=== PATIENT | female | born 1970 | race African-American/Black ===

== ENCOUNTER 2022-03-10 03:44 | Emergency (ER) | payer OTHER ==
[2022-03-10 04:00] VITALS: BP 149/84; PULSE 106; RESP 20; TEMP 97.8; BMI 40.8
[2022-03-10] MEDS ORDERED: IBUPROFEN 600 MG TABLET (FP) PO ONE ×2 (04:30→04:45)
== END 2022-03-10 06:05 | disposition home or self-care (01) ==
LOC: JER 03:44
DX: J09.X2 Influenza due to identified novel influenza A virus with other respiratory manifestations (principal); R05.1 Acute cough
CPT/HCPCS: 0241U-QW; 93005; 93010; 99284-25